=== PATIENT | male | born 1985 | race American Indian/Alaskan Native ===

== ENCOUNTER 2019-05-18 02:00 | Inpatient (IN) | payer OTHER ==
[2019-05-18] MEDS ORDERED: ONDANSETRON 4 MG/2 ML INJ IV ONE (03:20)
[2019-05-18] MEDS ORDERED: MORPHINE 4 MG/1 ML INJ IV ONE (03:20)
[2019-05-18] MEDS ORDERED: SODIUM CHLORIDE 0.9% 1000 ML 1,000 ML IV ONE (03:22)
--- NOTE | 2019-05-18 03:26 | Emergency Department Report ---
ED Abdominal Pain HPI - General Chief Complaint: Abdominal Pain Stated Complaint: ABDOMINAL PAIN(HERNIA) Time Seen by Provider: 05/18/19 03:16 Source: patient Mode of arrival: Ambulatory Limitations: No Limitations - History of Present Illness Initial Comments: Patient is 33 years old male with no significant past medical history. Patient presented to the ER complaining that his umbilical hernia is protruding more tonight than he is unable to reduce it. Patient stated that he had umbilical hernia since he was 19 years old but he never followed with any physician for that. Patient is complaining of nausea but no vomiting. Patient denied any fev er or chills. MD Complaint: abdominal pain Location: periumbilical - Related Data Allergies Allergy/AdvReac Type Severity Reaction Status Date / Time No Known Allergies Allergy Unverified 05/18/19 02:28 ED Review of Systems ROS: Stated complaint: ABDOMINAL PAIN(HERNIA) Other details as noted in HPI Comment: All other systems reviewed and negative Constitutional: denies: chills, fever Respiratory: denies: cough, shortness of breath, SOB with exertion Cardiovascular: denies: chest pain Gastrointestinal: abdominal pain, nausea. denies: vomiting, diarrhea, constipation, hematemesis, melena, hematochezia Neurological: denies: headache, weakness ED Past Medical Hx - Past Medical History Previous Medical History?: Yes Additional medical history: Hernia - Surgical History Past Surgical History?: Yes Additional Surgical History: Knee surgery - Social History Smoking Status: Never Smoker ED Physical Exam - General Limitations: No Limitations General appearance: alert, in no apparent distress - Head Head exam: Present: atraumatic, normocephalic, normal inspection - Eye Eye exam: Present: normal appearance - ENT ENT exam: Present: normal exam, normal orophraynx, mucous membranes moist - Neck Neck exam: Present: normal inspection. Absent: tenderness - Respiratory Respiratory exam: Present: normal lung sounds bilaterally - Cardiovascular Cardiovascular Exam: Present: tachycardia - GI/Abdominal GI/Abdominal exam: Present: soft, normal bowel sounds, hernia (huge umbilical hernia, unable to reduced). Absent: distended, tenderness, guarding, rebound, rigid, diminished bowel sounds, organomegaly, mass - Extremities Exam Extremities exam: Present: normal inspection, full ROM, normal capillary refill - Back Exam Back exam: Present: normal inspection, full ROM. Absent: CVA tenderness (R), CVA tenderness (L) - Neurological Exam Neurological exam: Present: alert, oriented X3, CN II-XII intact - Skin Skin exam: Present: warm, intact, normal color ED Course Vital Signs 05/18/19 05/18/19 05/18/19 02:04 03:35 03:53 Temperature 97.4 F L 97.8 F Pulse Rate 103 H 82 Respiratory 18 24 18 Rate Blood Pressure 151/96 Blood Pressure 166/83 [Left] O2 Sat by Pulse 98 93 Oximetry ED Medical Decision Making - Lab Data Result diagrams: 05/18/19 03:32 05/18/19 03:32 - Radiology Data Radiology results: report reviewed - Medical Decision Making Patient is 33 years old male with no significant past medical history. Patient presented to the ER complaining that his umbilical hernia is protruding more tonight than he is unable to reduce it. Patient stated that he had umbilical hernia since he was 19 years old but he never followed with any physician for that. Patient is complaining of nausea but no vomiting. Patient denied any fever or chills. Labs reviewed and is unremarkable. CT abdomen and pelvis showed incarcerated periumbilical hernia. I discussed the patient with Dr. Sharif, he is at the bedside examining the patient. He decided to take the patient to the OR for surgery. I discussed the patient is Dr. Edwige Winn, she agreed to admit the patient to medical service. Critical care attestation.: If time is entered above; I have spent that time in minutes in the direct care of this critically ill patient, excluding procedure time. ED Disposition Clinical Impression: Abdominal pain, Incarcerated umbilical hernia Disposition: OP ADMIT IP TO THIS HOSP Is pt being admited?: Yes Condition: Stable
[2019-05-18 04:03] LABS: Basophils # (Auto) 0.1 K/mm3 (0.0-0.1); Basophils % (Auto) 0.6 % (0.0-1.8); Eosinophils # (Auto) 0.2 K/mm3 (0.0-0.4); Eosinophils % (Auto) 1.8 % (0.0-4.3); Hemoglobin 15.4 gm/dl (11.8-15.2); Lymphocytes # (Auto) 1.6 K/mm3 (1.2-5.4); Mean Corpuscular HGB Conc 34 % (32-34); Mean Corpuscular Volume 95 fl (84-94); Monocytes # (Auto) 0.7 K/mm3 (0.0-0.8); Monocytes % (Auto) 6.9 % (0.0-7.3); Platelet Count 190 K/mm3 (140-440); Red Blood Count 4.76 M/mm3 (3.65-5.03); Red Cell Distribution Width 13.1 % (13.2-15.2)
--- NOTE | 2019-05-18 04:24 | Cat Scan Report ---
CT ABDOMEN AND PELVIS WITHOUT CONTRAST INDICATION / CLINICAL INFORMATION: Abdominal Pain/ obstructed umblical hernia. TECHNIQUE: Axial CT images were obtained through the abdomen and pelvis without IV contrast. All CT scans [facility] are performed using CT dose reduction for ALARA by means of automated exposure control. COMPARISON: None available. FINDINGS: LOWER CHEST: No significant abnormality. LIVER: No significant abnormality. GALLBLADDER: No significant abnormality. BILE DUCTS: No significant abnormality. PANCREAS: No significant abnormality. SPLEEN: No significant abnormality. ADRENALS: No significant abnormality. RIGHT KIDNEY and URETER: No significant abnormality. LEFT KIDNEY and URETER: No significant abnormality. STOMACH and SMALL BOWEL: No significant abnormality. COLON: Mid transverse colon is herniated through a large periumbilical hernia. APPENDIX: No significant abnormality. PERITONEUM: No free fluid. No free air. No fluid collection. LYMPH NODES: No significant adenopathy. AORTA and ARTERIES: No significant abnormality. IVC and VEINS: No significant abnormality. URINARY BLADDER: No significant abnormality. REPRODUCTIVE ORGANS: No significant abnormality. ADDITIONAL FINDINGS: Large periumbilical hernia with herniated loop of mesentery in mid transverse co nithya.. SKELETAL SYSTEM: No significant abnormality. IMPRESSION: Large periumbilical hernia with a herniated loop of transverse colon and some mesenteric fat with inc reased mesenteric edema which may represent early incarceration. Signer Name: Ishan Tidwell MD Signed: 05/18/2019 4:19 AM Workstation Name: [id number]
[2019-05-18 04:26] LABS: Alanine Aminotransferase 14 units/L (7-56); Albumin 3.9 g/dL (3.9-5); BUN/Creatinine Ratio 11; Blood Urea Nitrogen 9 mg/dL (9-20); Calcium 8.5 mg/dL (8.4-10.2); Hemolysis Index 14
[2019-05-18 04:42] LABS: Bilirubin,Direct < 0.2 mg/dL (0-0.2)
[2019-05-18] MEDS ORDERED: fentaNYL 100 MCG/2 ML INJ IV PRN (04:45)
[2019-05-18] MEDS ORDERED: ONDANSETRON 4 MG/2 ML INJ IV PRN ×3 (04:45→08:43)
--- NOTE | 2019-05-18 05:10 | Anesthesia Day of Surgery ---
Anesthesia Day of Surgery - Day of Surgery Patient Examined: Yes Patient H&P Reviewed: Yes Patient is NPO: Yes (05/17)
--- NOTE | 2019-05-18 05:11 | Anesthesia Consultation ---
Anesthesia Consult and Med Hx Date of service: 05/18/19 - Airway Anesthetic Teeth Evaluation: Good ROM Head & Neck: Adequate Mental/Hyoid Distance: Adequate Mallampati Class: Class II Intubation Access Assessment: Probably Good - Pre-Operative Health Status ASA Pre-Surgery Classification: ASA1, Emergency Proposed Anesthetic Plan: General
--- NOTE | 2019-05-18 05:13 | Progress Note ---
Assessment and Plan Full consult dictated: 33 y/o male incarcerated ventral hernia. for emergency expl lap possible bowel resection. procedure, indications and complications reviewed with pt. who understands and consent signed - General Chief Complaint: Abdominal Pain Stated Complaint: ABDOMINAL PAIN(HERNIA) Time Seen by Provider: 05/18/19 03:16 Source: patient Mode of arrival: Ambulatory Limitations: No Limitations - History of Present Illness Initial Comments: Patient is 33 years old male with no significant past medical history. Patient presented to the ER complaining that his umbilical hernia is protruding more tonight than he is unable to reduce it. Patient stated that he had umbilical hernia since he was 19 years old but he never followed with any physician for that. Patient is complaining of nausea but no vomiting. Patient denied any fever or chills. MD Complaint: abdominal pain Location: periumbilical - Related Data Allergies Allergy/AdvReac Type Severity Reaction Status Date / Time No Known Allergies Allergy Unverified 05/18/19 02:28 ED Review of Systems ROS: Stated complaint: ABDOMINAL PAIN(HERNIA) Other details as noted in HPI Comment: All other systems reviewed and negative Constitutional: denies: chills, fever Respiratory: denies: cough, shortness of breath, SOB with exertion Cardiovascular: denies: chest pain Gastrointestinal: abdominal pain, nausea. denies: vomiting, diarrhea, constipation, hematemesis, melena, hematochezia Neurological: denies: headache, weakness ED Past Medical Hx - Past Medical History Previous Medical History?: Yes Additional medical history: Hernia - Surgical History Past Surgical History?: Yes Additional Surgical History: Knee surgery - Social History Smoking Status: Never Smoker Selected Entries 05/18/19 05/18/19 03:35 04:23 Temperature 97.8 F Pulse Rate 82 Respiratory 20 Rate Blood Pressure 166/83 [Left] Laboratory Tests 05/18/19 05/18/19 03:32 03:32 WBC 9.5 Hgb 15.4 H Hct 45.0 Lipase 18 Objective Vital Signs - 12hr 05/18/19 05/18/19 05/18/19 02:04 03:35 03:53 Temperature 97.4 F L 97.8 F Pulse Rate 103 H 82 Respiratory 18 24 18 Rate Blood Pressure 151/96 Blood Pressure 166/83 [Left] O2 Sat by Pulse 98 93 Oximetry 05/18/19 04:23 Temperature Pulse Rate Respiratory 20 Rate Blood Pressure Blood Pressure [Left] O2 Sat by Pulse Oximetry - Labs 05/18/19 03:32 05/18/19 03:32 Diabetes panel 05/18/19 Range/Units 03:32 Sodium 138 (137-145) mmol/L Potassium 3.5 L (3.6-5.0) mmol/L Chloride 104.3 (98-107) mmol/L Carbon Dioxide 23 (22-30) mmol/L BUN 9 (9-20) mg/dL Creatinine 0.8 (0.8-1.5) mg/dL Glucose 110 H (75-100) mg/dL Calcium 8.5 (8.4-10.2) mg/dL AST 16 (5-40) units/L ALT 14 (7-56) units/L Alkaline Phosphatase 99 (35-129) units/L Total Protein 6.7 (6.3-8.2) g/dL Albumin 3.9 (3.9-5) g/dL Calcium panel 05/18/19 Range/Units 03:32 Calcium 8.5 (8.4-10.2) mg/dL Albumin 3.9 (3.9-5) g/dL Pituitary panel 05/18/19 Range/Units 03:32 Sodium 138 (137-145) mmol/L Potassium 3.5 L (3.6-5.0) mmol/L Chloride 104.3 (98-107) mmol/L Carbon Dioxide 23 (22-30) mmol/L BUN 9 (9-20) mg/dL Creatinine 0.8 (0.8-1.5) mg/dL Glucose 110 H (75-100) mg/dL Calcium 8.5 (8.4-10.2) mg/dL Adrenal panel 05/18/19 Range/Units 03:32 Sodium 138 (137-145) mmol/L Potassium 3.5 L (3.6-5.0) mmol/L Chloride 104.3 (98-107) mmol/L Carbon Dioxide 23 (22-30) mmol/L BUN 9 (9-20) mg/dL Creatinine 0.8 (0.8-1.5) mg/dL Glucose 110 H (75-100) mg/dL Calcium 8.5 (8.4-10.2) mg/dL Total Bilirubin 0.20 (0.1-1.2) mg/dL AST 16 (5-40) units/L ALT 14 (7-56) units/L Alkaline Phosphatase 99 (35-129) units/L Total Protein 6.7 (6.3-8.2) g/dL Albumin 3.9 (3.9-5) g/dL
--- NOTE | 2019-05-18 05:26 | Consultation ---
REASON FOR CONSULTATION: Incarcerated ventral hernia. HISTORY OF PRESENT ILLNESS: The patient is a 33-year-old gentleman, who presents to the Emergency Room with recent onset of abdominal pain accompanied by nausea, no vomiting. PAST MEDICAL HISTORY: Negative. PAST SURGICAL HISTORY: Status post right knee surgery. ALLERGIES: No known allergies. MEDICATIONS: No medications. FAMILY HISTORY: Negative. SOCIAL HISTORY: Negative. REVIEW OF SYSTEMS: Noncontributory. PHYSICAL EXAMINATION: GENERAL: At this time revealed the patient to be awake, alert, cooperative, mild discomfort, but no acute distress. VITAL SIGNS: Show him to be afebrile with a temperature of 97.8, blood pressure 166/83, pulse of 82, respirations of 20. ABDOMEN: Examination of the abdomen reveals a very large periumbilical incarcerated hernia measuring approximately 12 x 14 cm. The hernia is tender to touch and again nonreducible. Abdomen itself was not distended and the rest of the abdomen is nontender. LABORATORY DATA: Lab work at present includes a CBC which shows a white count of 9.5, H and H is 15 and 45. Electrolytes are essentially within normal limits. Lipase is 18. CT scan of the abdomen was performed, which is consistent with a large incarcerated ventral hernia with a loop of mesentery and mid transverse colon, possibly involving the incarceration. IMPRESSION: At this time is that of a 33-year-old gentleman, rule out incarcerated ventral hernia. PLAN: To proceed with emergency exploratory laparotomy, reduction and repair of ventral hernia, possible mesh. Possible bowel resection. Risk, indications, and complications have been reviewed with the patient who understands and has signed his consent. JOB# [id number] TIKA/AMANUEL
[2019-05-18] MEDS ORDERED: ACETAMINOPHEN 325 MG TAB PO PRN (05:29)
[2019-05-18] MEDS ORDERED: MORPHINE 2 MG/1 ML INJ IV PRN (05:29)
[2019-05-18] MEDS ORDERED: METOPROLOL TARTRATE 25 MG TAB PO SCH (05:31)
[2019-05-18] MEDS ORDERED: hydrALAZINE 20 MG/1 ML INJ IV PRN (05:32)
--- NOTE | 2019-05-18 05:37 | History and Physical Report ---
History of Present Illness Date of examination: 05/18/19 History of present illness: 33-year-old man whose had a umbilical hernia since 19 comes emergency room and her umbiliical pain and unable to reduce the hernia. Patient is very fustrated because I am the "15th doctor that he has to tell his story to ". Also has a history of hypertension for "years" not on any medicine. Furter history unobtainable Review of systemsReview Of Systems: Constitutional: no weight loss, fever, chills Ears, eyes, nose, mouth and throat: no nasal congestion, no nasal discharge, no sinus pressure, blurry vision, diplopia Neck: No neck pain or rigidity. Cardiovascular: No palpitations, chest pain Respiratory: No shortness of breath, cough Gastrointestinal: No hematochezia Genitourinary : no dysuria, frequency Musculoskeletal: no muscle ache , joint pain Integumentary: no rash, no pruritis Neurological: no parathesias, focal weakness Endocrine: no cold or heat intolerance, no polyuria or polydipsia Hematologic/Lymphatic: no easy bruising, no easy bleeding, no gland swelling Allergic/Immunologic: no urticaria, no angioedema. PAST MEDICAL HISTORY umbilical hernia PAST SURGICAL HISTORY: knee SOCIAL HISTORY: No drugs, tobacco, alcohol FAMILY HISTORY: Hypertension Medications and Allergies Allergies Allergy/AdvReac Type Severity Reaction Status Date / Time No Known Allergies Allergy Unverified 05/18/19 02:28 Home Medications Medication Instructions Recorded Confirmed Last Taken Type No Known Home Medications [No 05/18/19 05/18/19 Unknown History Reported Home Medications] Active Meds: Active Medications Acetaminophen (Tylenol) 650 mg PO Q4H PRN PRN Reason: Pain MILD(1-3)/Fever >100.5/ANDERSON Enoxaparin Sodium (Enoxaparin) 30 mg SUB-Q QDAY MERCEDES Fentanyl (Sublimaze) 50 mcg IV Q5MIN PRN PRN Reason: Pain , Severe (7-10) Stop: 05/18/19 14:15 Hydralazine HCl (Apresoline) 5 mg IV Q6H PRN PRN Reason: Hypertension Potassium Chloride (Kcl 10meq/100ml) 10 meq in 100 mls @ 100 mls/hr IV Q1H MERCEDES Stop: 05/18/19 07:59 Sodium Chloride (Nacl 0.45% 1000 Ml) 1,000 mls @ 75 mls/hr IV DIRECT MERCEDES Morphine Sulfate (Morphine) 2 mg IV Q4H PRN PRN Reason: Pain, Moderate (4-6) Ondansetron HCl (Zofran) 4 mg IV ONCE PRN PRN Reason: Nausea And Vomiting Ondansetron HCl (Zofran) 4 mg IV Q8H PRN PRN Reason: Nausea And Vomiting Sodium Chloride (Sodium Chloride Flush Syringe 10 Ml) 10 ml IV BID MERCEDES Sodium Chloride (Sodium Chloride Flush Syringe 10 Ml) 10 ml IV PRN PRN PRN Reason: LINE FLUSH Exam - Physical Exam Narrative exam: Gen. appearance: Patient lying in bed, no apparent distress HEENT: Normocephalic, atraumatic, pupils equally round and reactive to light, extraocular movement intact, and no sclericterus,. No JVD or thyromegaly or nodule,neck supple, no carotid bruit ,mucous membranes moist, no exudate or erythema Heart: S1, S2, regular rate and rhythm Lungs: Clear bilaterally, breathing comfortable Abdomen: Positive bowel sounds, tender around the umbilicus, +hernia, nondistended, no organomegaly Extremity:no edema cyanosis, clubbing Skin: no rash, dry, warm Neuro: Oriented 3, cranial nerves II-12 intact, speech is fluent, motor and s ensory intact - Constitutional Vitals: Temp Pulse Resp BP Pulse Ox 97.8 F 82 20 166/83 93 05/18/19 03:35 05/18/19 03:35 05/18/19 04:23 05/18/19 03:35 05/18/19 03:35 Results - Labs CBC & Chem 7: 05/18/19 03:32 05/18/19 03:32 Labs: Abnormal lab results 05/18/19 05/18/19 Range/Units 03:32 03:32 Hgb 15.4 H (11.8-15.2) gm/dl MCV 95 H (84-94) fl RDW 13.1 L (13.2-15.2) % Seg Neutrophils % 73.7 H (40.0-70.0) % Potassium 3.5 L (3.6-5.0) mmol/L Glucose 110 H (75-100) mg/dL - Imaging and Cardiology CT scan - abdomen: report reviewed CT scan - pelvis: report reviewed Assessment and Plan ASSESSMENT Incarcerated umbilical hernia Hypokalemia Hypertension uncontrolled Plan Admit to medicine Patient to go to surgery, was evaulauted by surgery replete potassium Hydralazine for blood pressure control
[2019-05-18] MEDS ORDERED: POTASSIUM CHLORIDE 10 MEQ 10 MEQ/100 ML BAG IV SCH (06:00)
[2019-05-18] MEDS ORDERED: SODIUM CHLORIDE 0.45% 1000 ML 1,000 ML IV SCH (06:00)
[2019-05-18] MEDS ORDERED: HYDROmorphone 1 MG/1 ML INJ ONE ×2 (06:43→08:43)
[2019-05-18] MEDS ORDERED: ROCURONIUM 50 MG/5 ML INJ IV ONE (06:44)
[2019-05-18] MEDS ORDERED: PROPOFOL 200 MG/20 ML VIAL IV ONE (06:44)
[2019-05-18] MEDS ORDERED: SUCCINYLCHOLINE CHLORIDE 200 MG/10 ML INJ MDV ONE (06:44)
[2019-05-18] MEDS ORDERED: LIDOCAINE MPF (2%) 20 MG/1 ML VIAL 5 ML ONE (06:44)
[2019-05-18] MEDS ORDERED: ceFAZolin/Water 2 GM/20 ML 2 GM/20 ML SYRINGE IV ONE (07:25)
[2019-05-18] MEDS ORDERED: LACTATED RINGERS 1,000 ML ONE (08:00)
[2019-05-18] MEDS ORDERED: NEOSTIGMINE 10MG/10 ML INJ MDV ONE (08:40)
[2019-05-18] MEDS ORDERED: GLYCOPYRROLATE 0.4 MG/2 ML INJ ONE (08:41)
[2019-05-18] MEDS ORDERED: MORPHINE 4 MG/1 ML INJ IV PRN (08:43)
[2019-05-18] MEDS ORDERED: D5W/0.45% NACL 1,000 ML IV SCH (09:00)
[2019-05-18] MEDS ORDERED: ONDANSETRON 4 MG/2 ML INJ ONE (09:27)
[2019-05-18] MEDS ORDERED: ENOXAPARIN 40 MG/0.4 ML INJ SUB-Q SCH (10:00)
[2019-05-18 10:01] VITALS: BP 123/68
[2019-05-18] MEDS ORDERED: LORazepam 2 MG/ML VIAL IV PRN (11:00)
--- NOTE | 2019-05-18 11:27 | Operative Report ---
PREOPERATIVE DIAGNOSIS: Large incarcerated ventral hernia involving the transverse colon as well as omentum. POSTOPERATIVE DIAGNOSIS: Large incarcerated ventral hernia involving the transverse colon as well as omentum. PROCEDURE: Emergency exploratory laparotomy, reduction of incarcerated hernia, partial omentectomy and repair of ventral hernia with mesh. SURGEON: Roland Sharif MD ANESTHESIA: General. ESTIMATED BLOOD LOSS: Minimal. DRAINS: No drains. COMPLICATIONS: No complications. DESCRIPTION OF PROCEDURE: The patient was taken to the operating room, prepped and draped in usual sterile fashion. Midline incision was made and abdomen entered. The abdomen was entered superiorly to the area of incarceration. Palpation of the undersurface of the peritoneum revealed the hernia neck. This was slowly transected with sharp dissection as well as electrocautery. The hernia was then eventually entered and all the contents reduced. The contents involved omentum as well as the transverse colon. A part of the omentum as well as hernia sac were removed. The area was then inspected for bleeding and noted to be dry. The intestines were carefully inspected including the transverse colon and all noted to be viable with good peristalsis and color. A Nelson was then used to retract the skin and electrocautery was used to dissect the fat and expose the entire fascia. The hernia itself was quite large and would require a mesh component for repair. The fascia was initially closed with interrupted #1 Surgilon suture primarily. Subsequent to this, a strip of Marlex mesh was on laid and secured to the fascia with interrupted #1 Vicryl. The entire area was then irrigated copiously and dried. Checked for hemostasis and noted to be dry. The subcutaneous was closed with interrupted 3-0 Vicryl suture. The skin was closed with theo. Fluffs and pressure dressings and abdominal binder were placed. The patient tolerated the procedure well and left the OR in stable condition. JOB# [id number] TIKA/AMANUEL
--- NOTE | 2019-05-18 15:21 | Event Note ---
Date: 05/18/19 Pt seen today. He was belligerent with aggressive behavior towards staff. He stated that he wanted to eat, however surgery recommended nothing by mouth for now. Subsequently, I was informed that the patient wanted to leave AGAINST MEDICAL ADVICE. I then went into the pt's room to speak to him , but he stated that he was not going to listen to me and blocked his ears while making some noises. I was left with no choice but to leave the room, since patient did not want to listen to any medical advice I was trying to offer him. Pt is competent to make his decision.
--- NOTE | 2019-05-18 15:51 | Post Anesthesia Evaluation ---
- Post Anesthesia Evaluation Patient Participated: Yes Airway Patent: Yes Stable Respiratory Function: Yes Nausea/Vomiting: No Temp > 96.8F: Yes Pain Manageable: Yes Adequeate Hydration: Yes Anesthesia Complications: No Block Receding Appropriately: Not Applicable Patient on Ventilator: No
[2019-05-18] MEDS ORDERED: ceFAZolin/NS 1 GM/50 ML 1 GM/50 ML BAG IV SCH (16:00)
--- NOTE | 2019-05-19 11:22 | Discharge Summary ---
Providers - Providers Date of Admission: 05/18/19 05:29 Date of discharge: 05/18/19 Attending physician: OMID LEMON 05/18/19 04:53 Consult to Physician [CONS] Stat Comment: Dr. Feliciano spoke with Dr. Sharif @ [id number] Consulting Provider: NATALIA SHARIF Physician Instructions: Reason For Exam: incarcerated periumbilical hernia 05/18/19 15:42 psychiatry consult [Consult to Mental Health] [CONS] Stat Reason For Exam: Per Dr. Sharif Place consult to:: [facility] ([facility]) Notified:: atttempted [facility] Condition: Fair Pertinent studies: CT abdomen/pelvis: Large errol-umbilical hernia with possible early incarceration Procedures: Exploratory laparotomy with hernia repair Hospital course: Final discharge diagnosis: Incarcerated umbilical hernia Hypokalemia Hypertension, uncontrolled Hospital course: Patient was admitted and later underwent urgent surgical intervention. Postsurgery, plan was to continue management. However, the patient became belligerent and unhappy with his NPO status. Several attempts made to convince the patient to remain in the hospital and continue treatment failed. He signed AGAINST MEDICAL ADVICE. Disposition: [id number] LEFT AGAINST MED ADVICE Time spent for discharge: 25 minutes Core Measure Documentation - Palliative Care Palliative Care/ Comfort Measures: Not Applicable - Core Measures Any of the following diagnoses?: none Exam - Physical Exam Narrative exam: Patient refused to be examined. - Constitutional Vitals: Temp Pulse Resp BP Pulse Ox 97.6 F 68 20 146/83 98 05/18/19 09:00 05/18/19 09:51 05/18/19 09:51 05/18/19 09:51 05/18/19 09:51 Plan Follow up with: TESHA COWAN MD [Primary Care Provider] - 3-5 Days Forms: AMA Form
== END 2019-05-18 16:30 | disposition left against medical advice (07) | DRG 355 ==
LOC: ED 02:00 → 3B-SURG 05:29
PROVIDERS: ADMIT Internal Medicine; ATTEND Internal Medicine
PROC: 0WUF0JZ Supplement Abdominal Wall with Synthetic Substitute, Open Approach (ICD-10-PCS; principal; 2019-05-18)
PROC: 0DBU0ZZ Excision of Omentum, Open Approach (ICD-10-PCS; 2019-05-18)
DX: K43.6 Other and unspecified ventral hernia with obstruction, without gangrene (principal); K42.0 Umbilical hernia with obstruction, without gangrene; I10 Essential (primary) hypertension; E87.6 Hypokalemia; Z82.49 Family history of ischemic heart disease and other diseases of the circulatory system
CPT/HCPCS: 36415; 74176; 80048; 80076; 83690; 85025; 88302; 96374; G0378; C1781; J0330; J0690; J1170; J2270; J2405; J2704; J2710; J3480; J7030; J7120